=== PATIENT | female | born 1960 | race Caucasian/White ===

== ENCOUNTER 2022-04-24 02:33 | Inpatient (IN) | payer SELFPAY ==
[2022-04-24] MEDS ORDERED: ONDANSETRON 4 MG/2 ML VIAL ONE ×3 (03:35→16:05)
[2022-04-24] MEDS ORDERED: MORPHINE 4 MG/ML SYR ONE ×4 (03:35→13:10)
--- NOTE | 2022-04-24 03:51 | ER ---
Nurse's Notes [facility] Name: Nas Welsh Age: 61 yrs Sex: Female : 1960 Arrival Date: 04/24/2022 Time: 02:43 Bed 13 Private MD: Diagnosis: Fall on same level, unspecified;Displaced fracture of base of neck of left femur;Elevated white blood cell count Presentation: 04/24 03:11 Chief complaint: Patient states: "I was walking to the kitchen around 1030 and tripped vc1 over my dog. I couldn't stand up all I could do was scream. My put me in bed but around 0230 my hip still hurt so bad. EMS states: When we arrived she was complaining of left hip pain, no LOC, no obvious deformity, pain to touch. Coronavirus screen: Vaccine status: Patient reports receiving the 2nd dose of the covid vaccine. [employer]. Ebola Screen: No symptoms or risks identified at this time. Initial Sepsis Screen: Does the patient meet any 2 criteria? No. Patient's initial sepsis screen is negative. Does the patient have a suspected source of infection? No. Patient's initial sepsis screen is negative. Risk Assessment: Do you want to hurt yourself or someone else? Patient reports no desire to harm self or others. Onset of symptoms was April 23, 2022 at 22:30. 03:11 Method Of Arrival: EMS: [facility] vc1 03:11 Acuity: GLENDA 3 vc1 03:11 Care prior to arrival: None. Mechanism of Injury: Fall. Trauma event details: Injury vc1 occurred in the [facility]. Triage Assessment: 03:14 General: Appears in no apparent distress. uncomfortable, Behavior is calm, cooperative, vc1 appropriate for age. Pain: Complains of pain in left hip Pain does not radiate. Pain currently is 10 out of 10 on a pain scale. EENT: No deficits noted. Neuro: Level of Consciousness is awake, alert, obeys commands, Oriented to person, place, time, situation, Appropriate for age. Cardiovascular: Capillary refill < 3 seconds Patient's skin is warm and dry. Respiratory: Airway is patent Respiratory effort is even, unlabored, Respiratory pattern is regular, symmetrical. GI: No deficits noted. : No deficits noted. Derm: No deficits noted. Musculoskeletal: Tenderness present in left hip. Musculoskeletal: Reports weakness in left hip pain in left hip. Trauma Activation: Not Applicable Physician: ED Physician; Name: ; Notified At: ; Arrived At: Physician: General Surgeon; Name: ; Notified At: ; Arrived At: Physician: Radiology; Name: ; Notified At: ; Arrived At: Physician: Respiratory; Name: ; Notified At: ; Arrived At: Physician: Lab; Name: ; Notified At: ; Arrived At: Historical: - Allergies: 03:14 PENICILLINS; vc1 - Home Meds: 03:14 lisinopril 20 mg Oral tab 1 tab once daily [Active]; vc1 - PMHx: 03:14 borderline diabetic; Hypertension; vc1 - PSHx: 03:14 None; vc1 - Immunization history:: Adult Immunizations up to date, Client reports receiving the 2nd dose of the Covid vaccine. - Social history:: Smoking status: Patient denies any tobacco usage or history of. Patient/guardian denies using alcohol. - Immunization history: Last tetanus immunization: unknown. - Family history:: not pertinent. Screenin:17 Abuse screen: Denies threats or abuse. Nutritional screening: No deficits noted. vc1 Tuberculosis screening: No symptoms or risk factors identified. Fall Risk Fall in past 12 months (25 points). No secondary diagnosis (0 pts). No IV (0 pts). Ambulatory Aid- None/Bed Rest/Nurse Assist (0 pts). Gait- Normal/Bed Rest/Wheelchair (0 pts) Mental Status- Oriented to own ability (0 pts). Total Hale Fall Scale indicates Low Risk Score (25-44 pts). Fall prevention measures have been instituted. Side Rails Up X 2 Family Present and informed to notify staff if they need to leave bedside. Primary Survey: 02:50 NO uncontrolled hemorrhage observed. Breathing/Chest: Spontaneous respiratory effort, vc1 equal unlabored respirations, breath sounds clear bilaterally, regular pattern, symmetrical chest rise and fall. Circulation: No external hemorrhage present. Regular and strong central pulse, skin warm/dry/normal color. Disability Client is alert. Exposure/Environment: There is no evidence of uncontrolled external bleeding. A warming method has been applied: A warm blanket has been provided to the patient. 04:33 Reassessment Breathing: Spontaneous respiratory effort, equal unlabored respirations, vc1 breath sounds clear bilaterally, regular pattern with symmetrical chest rise and fall. Assessment: 03:45 Reassessment: No changes from previously documented assessment. See triage assessment. vc1 07:30 General: Appears in no apparent distress. Behavior is cooperative. Pain: Complains of ww pain in pelvis and left hip. Neuro: [place] Agitation-Sedation Scale (RASS): 0 - Alert and Calm Level of Consciousness is awake, alert, obeys commands, Oriented to person, place, time, situation, Speech is normal. Cardiovascular: Capillary refill < 3 seconds Patient's skin is warm and dry. Pulses are palpable in left posterior tibial artery and left dorsalis pedis artery. Respiratory: Airway is patent Respiratory effort is even, unlabored, Respiratory pattern is regular, symmetrical. GI: No signs and/or symptoms were reported involving the gastrointestinal system. : No signs and/or symptoms were reported regarding the genitourinary system. Slaughter in place Urine is clear. Derm: Skin is intact, is healthy with good turgor. Vital Signs: 03:11 BP 151 / 79; Pulse 70; Resp 17; Temp 97.4; Pulse Ox 100% on R/A; Weight 61.23 kg; vc1 Height 4 ft. 11 in. (149.86 cm); Pain 10/10; 04:34 BP 146 / 71; Pulse 66; Resp 15; Pulse Ox 95% on R/A; vc1 03:11 Body Mass Index 27.27 (61.23 kg, 149.86 cm) vc1 [place] Coma Score: 03:18 Eye Response: spontaneous(4). Verbal Response: oriented(5). Motor Response: obeys vc1 commands(6). Total: 15. Trauma Score (Adult): 03:18 Eye Response: spontaneous(1); Verbal Response: oriented(1); Motor Response: obeys vc1 commands(2); Systolic BP: > 89 mm Hg(4); Respiratory Rate: 10 to 29 per min(4); Toshia Score: 15; Trauma Score: 12 ED Course: 02:43 Patient arrived in ED. wm 02:59 Fercho Lu MD is Attending Physician. pernell 03:11 Yulisa Osborne RN is Primary Nurse. vc1 03:14 Triage completed. vc1 03:16 Arm band placed on right wrist. vc1 03:46 Hutton, Mohammad, MD is Hospitalizing Provider. pernell 04:34 Patient has correct armband on for positive identification. Bed in low position. Call vc1 light in reach. Client placed on continuous cardiac and pulse oximetry monitoring. NIBP monitoring applied. 04:34 Patient maintains SpO2 saturation greater than 95% on room air. vc1 04:34 Thermoregulation: warm blanket given to patient. vc1 04:39 Slaughter cath inserted, using sterile technique, 16 Fr., by ak, balloon inflated, to wm gravity drainage, clamped. 05:03 XRAY Chest (1 view) In Process Unspecified. EDMS 05:03 Pelvis XRAY In Process Unspecified. EDMS 05:03 Hip Left 2 View XRAY In Process Unspecified. EDMS 12:21 No provider procedures requiring assistance completed. ww 13:40 Patient admitted, IV remains in place. ww Administered Medications: 03:40 Drug: Zofran (Ondansetron) 4 mg Route: IVP; Site: right antecubital; vc1 03:41 Drug: morphine 4 mg Route: IVP; Site: right antecubital; vc1 Medication: 13:40 VIS not applicable for this client. ww Output: 13:40 Urine: 550ml (Slaughter); Total: 550ml. ww Outcome: 03:50 Decision to Hospitalize by Provider. [facility] 04:34 No Medsur beds availablePatient's length of stay extended due to vc1 13:39 Admitted to Med/surg accompanied by nurse, via stretcher, Report called to jorge. ww Attempted report at 1311 and Jorge will call back. I called at 1331 and Jorge will back. Jorge called at 1337 13:39 Condition: stable 14:29 Patient left the ED. ww Signatures: Dispatcher [employer] Fercho Alvarado MD MD cha Marsh, Wendy wm Wood, Whitney RN RN Yulisa Hill RN RN vc1 Corrections: (The following items were deleted from the chart) 03:15 03:14 Home Meds: lisinopril 20 mg Oral tab 1 tab twice a day; vc1 vc1
--- NOTE | 2022-04-24 03:51 | EDPHYS ---
Physician Documentation [facility] Name: Nas Welsh Age: 61 yrs Sex: Female : 1960 Arrival Date: 04/24/2022 Time: 02:43 Bed 13 Private MD: ED Physician Fercho Lu HPI: 04/24 03:42 This 61 yrs old Female presents to ER via EMS with complaints of Fall Injury. pernell 03:42 Details of fall: The patient fell from an upright position, while walking. Onset: The pernell symptoms/episode began/occurred just prior to arrival. Associated injuries: The patient sustained left hip, decreased range of motion, deformity, obvious fracture. Severity of symptoms: At their worst the symptoms were mild, moderate, in the emergency department the symptoms have improved, moderately, are actually worse, markedly. Historical: - Allergies: 03:14 PENICILLINS; vc1 - Home Meds: 03:14 lisinopril 20 mg Oral tab 1 tab once daily [Active]; vc1 - PMHx: 03:14 borderline diabetic; Hypertension; vc1 - PSHx: 03:14 None; vc1 - Immunization history:: Adult Immunizations up to date, Client reports receiving the 2nd dose of the Covid vaccine. - Social history:: Smoking status: Patient denies any tobacco usage or history of. Patient/guardian denies using alcohol. - Immunization history: Last tetanus immunization: unknown. - Family history:: not pertinent. ROS: 03:42 Constitutional: Negative for fever, chills, and weight loss, Eyes: Negative for injury, pernell pain, redness, and discharge, ENT: Negative for injury, pain, and discharge, Neck: Negative for injury, pain, and swelling, Cardiovascular: Negative for chest pain, palpitations, and edema, Respiratory: Negative for shortness of breath, cough, wheezing, and pleuritic chest pain, Abdomen/GI: Negative for abdominal pain, nausea, vomiting, diarrhea, and constipation, Back: Negative for injury and pain, : Negative for injury, bleeding, discharge, and swelling, Skin: Negative for injury, rash, and discoloration, Neuro: Negative for headache, weakness, numbness, tingling, and seizure, Psych: Negative for depression, anxiety, suicide ideation, homicidal ideation, and hallucinations, Allergy/Immunology: Negative for hives, rash, and allergies, Endocrine: Negative for neck swelling, polydipsia, polyuria, polyphagia, and marked weight changes, Hematologic/Lymphatic: Negative for swollen nodes, abnormal bleeding, and unusual bruising. 03:42 MS/extremity: Positive for injury or acute deformity, decreased range of motion, pain, swelling, tenderness, of the left hip. Exam: 03:42 Constitutional: This is a well developed, well nourished patient who is awake, alert, pernell and in no acute distress. Head/Face: Normocephalic, atraumatic. Eyes: Pupils equal round and reactive to light, extra-ocular motions intact. Lids and lashes normal. Conjunctiva and sclera are non-icteric and not injected. Cornea within normal limits. Periorbital areas with no swelling, redness, or edema. ENT: Nares patent. No nasal discharge, no septal abnormalities noted. Tympanic membranes are normal and external auditory canals are clear. Oropharynx with no redness, swelling, or masses, exudates, or evidence of obstruction, uvula midline. Mucous membranes moist. Neck: Trachea midline, no thyromegaly or masses palpated, and no cervical lymphadenopathy. Supple, full range of motion without nuchal rigidity, or vertebral point tenderness. No Meningismus. Chest/axilla: Normal chest wall appearance and motion. Nontender with no deformity. No lesions are appreciated. Cardiovascular: Regular rate and rhythm with a normal S1 and S2. No gallops, murmurs, or rubs. Normal PMI, no JVD. No pulse deficits. Respiratory: Lungs have equal breath sounds bilaterally, clear to auscultation and percussion. No rales, rhonchi or wheezes noted. No increased work of breathing, no retractions or nasal flaring. Abdomen/GI: Soft, non-tender, with normal bowel sounds. No distension or tympany. No guarding or rebound. No evidence of tenderness throughout. Back: No spinal tenderness. No costovertebral tenderness. Full range of motion. Female : Normal external genitalia. Skin: Warm, dry with normal turgor. Normal color with no rashes, no lesions, and no evidence of cellulitis. Neuro: Awake and alert, GCS 15, oriented to person, place, time, and situation. Cranial nerves II-XII grossly intact. Motor strength 5/5 in all extremities. Sensory grossly intact. Cerebellar exam normal. Normal gait. Psych: Awake, alert, with orientation to person, place and time. Behavior, mood, and affect are within normal limits. 03:42 Musculoskeletal/extremity: ROM: intact in all extremities, Circulation is intact in all extremities. Sensation intact. Compartment Syndrome exam of affected extremity: is normal. Weight bearing: DVT Exam: No signs of deep vein thrombosis. negative Homans' sign noted on exam, no appreciated bluish discoloration, no erythema, no increased warmth, pain, swelling, tenderness. 04:16 ECG was reviewed by the Attending Physician. [facility] Vital Signs: 03:11 BP 151 / 79; Pulse 70; Resp 17; Temp 97.4; Pulse Ox 100% on R/A; Weight 61.23 kg; vc1 Height 4 ft. 11 in. (149.86 cm); Pain 10/10; 04:34 BP 146 / 71; Pulse 66; Resp 15; Pulse Ox 95% on R/A; vc1 03:11 Body Mass Index 27.27 (61.23 kg, 149.86 cm) vc1 [place] Coma Score: 03:18 Eye Response: spontaneous(4). Verbal Response: oriented(5). Motor Response: obeys vc1 commands(6). Total: 15. Trauma Score (Adult): 03:18 Eye Response: spontaneous(1); Verbal Response: oriented(1); Motor Response: obeys vc1 commands(2); Systolic BP: > 89 mm Hg(4); Respiratory Rate: 10 to 29 per min(4); Toshia Score: 15; Trauma Score: 12 MDM: 02:59 Patient medically screened. [facility] 03:45 Differential diagnosis: fracture, multiple trauma, sprain, strain. Data reviewed: vital [facility] signs, nurses notes, EMS record, lab test result(s), EKG, radiologic studies, plain films. Data interpreted: slumber room attendant: rate is 70 beats/min, rhythm is regular, Pulse oximetry: on room air is 100 %. Test interpretation: by ED physician or midlevel provider: ECG, plain radiologic studies. Counseling: I had a detailed discussion with the patient and/or guardian regarding: the historical points, exam findings, and any diagnostic results supporting the discharge/admit diagnosis, the presence of at least one elevated blood pressure reading (>120/80) during this emergency department visit, lab results, radiology results, the need for further work-up and treatment in the hospital. 04/24 03:42 Order name: Basic Metabolic Panel; Complete Time: 07:14 [facility] 04/24 03:42 Order name: CBC with Diff; Complete Time: 05:04 [facility] 04/24 03:42 Order name: LFT's; Complete Time: 07:14 [facility] 04/24 03:42 Order name: Magnesium; Complete Time: 07:14 [facility] 04/24 03:42 Order name: NT PRO-BNP; Complete Time: 07:14 [facility] 04/24 03:42 Order name: PT-INR; Complete Time: 05:04 [facility] 04/24 03:42 Order name: Troponin HS; Complete Time: 07:14 [facility] 04/24 03:42 Order name: XRAY Chest (1 view) [facility] 04/24 03:42 Order name: Pelvis XRAY [facility] 04/24 03:42 Order name: Hip Left 2 View XRAY [facility] 04/24 03:42 Order name: SARS-COV-2 RT PCR (Document "Date of Onset" if Symptomatic); Complete Time: [facility] 04/24 10:35 Order name: RAD EDMS 04/24 03:42 Order name: EKG; Complete Time: 03:43 [facility] 04/24 03:42 Order name: Cardiac monitoring; Complete Time: 04:36 [facility] 04/24 03:42 Order name: EKG - Nurse/Tech; Complete Time: 04:36 [facility] 04/24 03:42 Order name: IV Saline Lock; Complete Time: 03:50 [facility] 04/24 03:42 Order name: Labs collected and sent; Complete Time: 03:50 [facility] 04/24 03:42 Order name: O2 Per Protocol; Complete Time: 03:50 [facility] 04/24 03:42 Order name: O2 Sat Monitoring; Complete Time: 03:50 [facility] 04/24 03:42 Order name: Slaughter; Complete Time: 04:36 [facility] EC:16 Rate is 64 beats/min. Rhythm is regular. QRS [place] is Normal. NC interval is normal. QRS pernell interval is normal. QT interval is normal. No Q waves. T waves are Normal. No ST changes noted. Clinical impression: Normal ECG and No evidence of ischemia. Interpreted by me. Reviewed by me. Administered Medications: 03:40 Drug: Zofran (Ondansetron) 4 mg Route: IVP; Site: right antecubital; vc1 03:41 Drug: morphine 4 mg Route: IVP; Site: right antecubital; vc1 Disposition Summary: 04/24/22 03:50 Hospitalization Ordered Hospitalization Status: Inpatient Admission pernell Provider: Jasbir Hutton cha Condition: Stable pernell Problem: new pernell Symptoms: are unchanged pernell Bed/Room Type: Standard pernell Location: Telemetry/MedSurg (Inpatient)(04/24/22 12:53) bd Room Assignment: 210(04/24/22 12:53) bd Diagnosis - Fall on same level, unspecified pernell - Displaced fracture of base of neck of left femur pernell - Elevated white blood cell count pernell Forms: - Medication Reconciliation Form pernell - SBAR form pernell Signatures: Dispatcher [employer] EDMS Ioana Gannon Corey, MD MD cha Garcia, Cindy, RN RN cg Wood, Whitney, RN RN ww Calcote, Vanessa, RN RN vc1 Pati Gonzalez PA PA sb3 Corrections: (The following items were deleted from the chart) 03:15 03:14 Home Meds: lisinopril 20 mg Oral tab 1 tab twice a day; vc1 vc1 05:23 03:50 Displaced intertrochanteric fracture of left femur, initial encounter for closed pernell fracture pernell 05:29 03:50 Telemetry/MedSurg (Inpatient) pernell cg 05:29 03:50 pernell cg 12:53 05:29 [facility] ER HOLD cg bd 12:53 05:29 ERHOLD- cg bd
[2022-04-24 04:08] LABS: Absolute Lymphocytes (CBC) 0.8 K/uL (0.7-4.9); Hematocrit 39.6 % (36.0-45.0); Lymphocytes % 6.1 % (15.3-44.8); MCV 83.2 fL (80-100); MPV 8.7 fL (7.6-11.3); RBC Red Blood Cell Count 4.76 M/uL (3.86-4.86)
[2022-04-24 04:10] LABS: Protime INR 0.97
--- NOTE | 2022-04-24 05:16 | P.HP ---
Certification for Inpatient Patient admitted to: Inpatient With expected LOS: <2 Midnights Patient will require the following post-hospital care: None Practitioner: I am a practitioner with admitting privileges, knowledge of patient current condition, hospital course, and medical plan of care. Services: Services provided to patient in accordance with Admission requirements found in Title 42 Section 412.3 of the Code of Federal Regulations <Pati Gonzalez - Last Filed: 04/24/22 05:17> Patient History Date of Service: 04/24/22 Reason for admission: Femur Fracture History of Present Illness: Patient is a 61 y/o F with PMH of HTN who presented to the ED with L hip pain s/p fall at home. Patient reports she was walking in her kitchen when she tripped over her dog and fell onto her L hip. She could not stand and her pain was unbearable and called EMS. L leg shortened and rotated upon arrival to ED. WBC elevated at 13. Chemistry pending. Xray showed L displaced intertrochanteric femur fracture. Official read pending. Patient given morphine in ED with improvement in pain. Patient denies cardiac history or use of anticoagulants. Will admit patient for further evaluation and treatment. Home medications list reviewed: Yes - Past Medical/Surgical History Diabetic: No -: HTN -: PREDIABETIC -: XAVIER -: RIGHT WRIST SX -: TONSILLECTOMY Psychosocial/ Personal History: Patient lives at home with her fiance. - Family History Brother -: Hypertension Sister -: Hypertension - Social History Smoking Status: Never smoker Alcohol use: No CD- Drugs: No Caffeine use: No Place of Residence: Home <CarlosPati - Last Filed: 04/24/22 05:17> Date of Service: 04/24/22 <Jasbir Hutton - Last Filed: 04/26/22 07:39> Allergies Penicillins Allergy (Verified 01/29/16 16:59) Hives/Rash "UNKNOWN" STEROID Allergy (Uncoded 04/24/22 15:57) TONGUE SWELLING Home Medications: lisinopriL [Prinivil*] 20 mg PO BID 01/29/16 Review of Systems Musculoskeletal: Other (L hip pain) <Pati Gonzalez - Last Filed: 04/24/22 05:17> Physical Examination - Physical Exam General: Alert, In no apparent distress HEENT: Atraumatic, PERRLA, EOMI, Sclerae nonicteric Neck: Supple, 2+ carotid pulse no bruit, No LAD, Without JVD or thyroid abnormality Respiratory: Clear to auscultation bilaterally, Normal air movement Cardiovascular: Regular rate/rhythm, Normal S1 S2 Gastrointestinal: Normal bowel sounds, No tenderness Musculoskeletal: Tenderness, Other (+deformity L leg) Integumentary: No rashes Neurological: Normal speech, Normal tone, Sensation intact, Normal affect - Studies Laboratory Data (last 24 hrs) 04/24/22 03:53: PT 10.7, INR 0.97 04/24/22 03:53: WBC 13.0 H, Hgb 13.4, Hct 39.6, Plt Count 153 <Pati Gonzalez - Last Filed: 04/24/22 05:17> Assessment and Plan - Problems (Diagnosis) (1) Femur fracture, left Current Visit: Yes Status: Acute Qualifiers: Encounter type: initial encounter Femur location: intertrochanteric Fracture type: closed Fracture alignment: displaced Qualified Code(s): S72.142A - Displaced intertrochanteric fracture of left femur, initial encounter for closed fracture (2) Leukocytosis Current Visit: Yes Status: Acute Qualifiers: Leukocytosis type: unspecified Qualified Code(s): D72.829 - Elevated white blood cell count, unspecified (3) Hypertension Current Visit: Yes Status: Chronic Qualifiers: Hypertension type: primary hypertension Qualified Code(s): I10 - Essential (primary) hypertension - Plan -NPO. Ortho consulted -Chemistry pending. Replete electrolytes per protocol -Patient is prediabetic. Monitor glucose -Morphine PRN pain -Hydralazine PRN BP spikes -Reconcile and continue home medications -SCDs for VTE ppx (patient is not on blood thinners) Discharge Plan: Home Plan to discharge in: 48 Hours - Advance Directives Does patient have a Living Will: No Does patient have a Durable POA for Healthcare: No - Code Status/Comfort Care Code Status Assessed: Yes (Full) Critical Care: No Time Spent Managing Pts Care (In Minutes): 50 <Pati Gonzalez - Last Filed: 04/24/22 05:17> Date of Service: 04/24/22 Subjective: HPI as mentioned above Physical Examination: Vitals: Afebrile vital signs are stable Physical exam: Cardiovascular: Within normal limits. Lungs: Within normal limits Abdomen: Within normal limits Neuro: Awake, alert, oriented to person place and time Assessment: 1. Left femoral neck fracture Plan: 1. Continue with current plan of care as mentioned above <Jasbir Hutton - Last Filed: 04/26/22 07:39>
[2022-04-24 06:31] LABS: ALT/SGPT 19 U/L (12-78); AST/SGOT 10 U/L (15-37); Albumin 3.3 g/dL (3.4-5.0); Alkaline Phosphatase 94 U/L (45-117); BUN Blood Urea Nitrogen 22 mg/dL (7-18); Bicarbonate 24 mmol/L (21-32); Bilirubin Total 0.3 mg/dL (0.2-1.0); Glomerular Filtration Rate 87 ml/min (=/>90); Glucose Level 146 mg/dL (74-106); Magnesium 1.9 mg/dL (1.8-2.4); NT PRO-BNP 47 pg/mL (<125); Protein, Total 6.5 g/dL (6.4-8.2); Sodium Level 138 mmol/L (136-145); Troponin High Sensitivity 5.1 pg/mL (<58.9)
[2022-04-24 06:33] LABS: Bilirubin Direct < 0.1 mg/dL (0-0.2)
[2022-04-24] MEDS ORDERED: HYDRALAZINE HCL 20 MG/ML VIAL IV PRN (08:00)
[2022-04-24] MEDS ORDERED: ACETAMINOPHEN 500 MG TAB PO PRN (08:00)
[2022-04-24] MEDS: NA CHLORIDE 0.9% 1,000 ML IV SCH ×3 (08:00→19:08)
[2022-04-24] MEDS ORDERED: ONDANSETRON 4 MG/2 ML VIAL IV PRN (08:00)
[2022-04-24] MEDS ORDERED: NA CHLORIDE 0.9% 1,000 ML ONE ×2 (08:36→17:41)
[2022-04-24] MEDS: MORPHINE 4 MG/ML SYR IV PRN ×2 (08:37→13:07)
[2022-04-24] MEDS ORDERED: TRANEXAMIC ACID 1,000 MG/10 ML VIAL IV ONE ×2 (08:49→17:00)
--- NOTE | 2022-04-24 10:34 | RAD REPORT ---
EXAM DESCRIPTION: XR Left Hip With Pelvis When Performed, 1 View CLINICAL HISTORY: The patient is 61 years old and is Female; PAIN TECHNIQUE: Single frontal view of the left hip with pelvis when performed. COMPARISON: No relevant prior studies available. FINDINGS: Bones/joints: Distracted left femoral neck fracture. No dislocation. Soft tissues: Unremarkable. IMPRESSION: Distracted left femoral neck fracture. Electronically signed by: Jamilah Francisco MD 04/24/2022 5:45 AM CDT Due to temporary technical issues with the PACS/Fluency reporting system, reports are being signed by the in house radiologists without review as a courtesy to insure prompt reporting. The interpreting radiologist is fully responsible for the content of the report.
--- NOTE | 2022-04-24 11:06 | EKG ---
Test Date: 2022-04-24 Test Time: 04:09:04 Industrial Ecology Technician: RADHA MEASUREMENT RESULTS: Intervals: Rate: 64 CA: 142 QRSD: 78 QT: 418 QTc: 431 [place]: P: 51 CA: 142 QRS: 40 T: 27 INTERPRETIVE STATEMENTS: Normal sinus rhythm Normal ECG No previous ECG available for comparison Electronically Signed On 04-24-22 11:04:48 CDT by Kin Felix
[2022-04-24 12:08] VITALS: BMI 27.2
--- NOTE | 2022-04-24 12:42 | RAD REPORT ---
EXAM DESCRIPTION: XR Pelvis, 1 or 2 Views CLINICAL HISTORY: The patient is 61 years old and is Female; left hip pain TECHNIQUE: Single frontal view of the pelvis. COMPARISON: No relevant prior studies available. FINDINGS: Bones/joints: Distracted left femoral neck fracture. No dislocation. Soft tissues: Unremarkable. IMPRESSION: Distracted left femoral neck fracture. Electronically signed by: Jamilah Francisco MD 04/24/2022 5:44 AM CDT Due to temporary technical issues with the PACS/Fluency reporting system, reports are being signed by the in house radiologists without review as a courtesy to insure prompt reporting. The interpreting radiologist is fully responsible for the content of the report.
--- NOTE | 2022-04-24 13:01 | RAD REPORT ---
EXAM DESCRIPTION: XR Chest, 1 View CLINICAL HISTORY: The patient is 61 years old and is Female; COUGH TECHNIQUE: Single view of the chest. COMPARISON: No relevant prior studies available. FINDINGS: Lungs: Hazy infiltrate or subsegmental atelectasis in the retrocardiac left lower lobe. Pleural space: Unremarkable. No pneumothorax. Heart: Unremarkable. No cardiomegaly. Mediastinum: Unremarkable. Bones/joints: No acute fracture visualized. Upper abdomen: No free air in the visualized upper abdomen. IMPRESSION: Hazy infiltrate or subsegmental atelectasis in the retrocardiac left lower lobe. Electronically signed by: Jamilah Francisco MD 04/24/2022 5:43 AM CDT Due to temporary technical issues with the PACS/Fluency reporting system, reports are being signed by the in house radiologists without review as a courtesy to insure prompt reporting. The interpreting radiologist is fully responsible for the content of the report.
[2022-04-24] MEDS ORDERED: LIDOCAINE 1% MPF 5 ML VIAL ONE (16:04)
[2022-04-24] MEDS ORDERED: FENTANYL CITR 100 MCG/2 ML ONE (16:04)
[2022-04-24] MEDS ORDERED: MIDAZOLAM HCL 2 MG/2 ML INJ ONE (16:04)
[2022-04-24] MEDS ORDERED: propofoL 200 MG/20 ML VIAL IV ONE (16:04)
[2022-04-24] MEDS ORDERED: KETOROLAC 30 MG/ML INJ ONE (16:05)
[2022-04-24] MEDS ORDERED: ROCURONIUM 50 MG/5 ML VIAL IV ONE (16:05)
[2022-04-24] MEDS ORDERED: NEOSTIGMINE 1 MG/ML -10 ML VIAL ONE (16:05)
[2022-04-24] MEDS ORDERED: GLYCOPYRROLATE 0.2 MG/ML SYR ONE (16:05)
[2022-04-24] MEDS: CEFAZOLIN SODIUM 1 GM/VIAL ONE ×2 (16:12→17:12)
[2022-04-24] MEDS ORDERED: Phenylephrine HCl 10 MG/ML 1 ML VIAL ONE (17:08)
[2022-04-24] MEDS ORDERED: EPHEDRINE SULF 50 MG/ML VIAL ONE (17:13)
[2022-04-24] MEDS: HYDROMORPHONE HCL 1 MG/ML INJ ONE ×2 (18:44→18:56)
--- NOTE | 2022-04-24 18:55 | RAD REPORT ---
EXAM DESCRIPTION: RAD - Pelvis - 04/24/2022 6:48 pm CLINICAL HISTORY: Left hip surgery FINDINGS: Left hip arthroplasty has been performed. The prosthesis is in good position. No dislocation. No fracture
[2022-04-24] MEDS: NACHLORIDE 0.45% 1,000 ML IV SCH (20:19)
--- NOTE | 2022-04-25 01:30 | OP ---
Surgeon: Terrance Carlton MD [employer] Specialist: bilingual medical assistant, Raina. Preoperative Diagnosis: Left femoral neck fracture. Postoperative Diagnosis: Left femoral neck fracture. Procedure Performed: Left hip hemiarthroplasty. Complications: None. Disposition: To recovery room stable. Operative Report In Detail: The patient was taken to the operative suite, placed in the supine posit ion, and induced with anesthesia. Left hip was prepped and draped in the usual sterile fashion. The posterior approach to the hip was utilized. Hemostasis was verified. The fractured femoral neck wa s delivered. External rotators were tagged for later reattachment, and prior to delivery, a 43 head was then harvested and osteotomized 1 fingerbreadth above the lesser trochanter. Reaming [place] nique for 11 mm standard offset proximal porous-coated Echo stem was utilized. A +3, 28 mm ball was appropriate. Permanent implants were placed. A layered closure was performed including repair of ex ternal rotators through drill holes in bone. The patient tolerated the procedure well, is being reve rsed from anesthesia at the time of this dictation, and should be in the recovery room shortly. JOHN/GEMA Voice ID: [id number] Report ID: [id number]
[2022-04-25] MEDS: CEFAZOLIN 1 GM in NA CHLORIDE 0.9% 50 ML IVPB SCH ×2 (01:46→08:14)
[2022-04-25 06:05] LABS: Urine Appearance Clear (Clear); Urine Bilirubin Negative (Negative); Urine Blood Trace-intact (Negative); Urine Color Yellow (Yellow); Urine Glucose Negative (Negative); Urine Protein Negative (Negative); Urine Specific Gravity 1.025 (1.005-1.030); Urine Urobilinogen 0.2 mg/dL (0.2-1.0)
[2022-04-25] MEDS: HYDROCODONE/APAP 5/325 MG TAB PO PRN ×2 (06:05→15:13)
[2022-04-25] MEDS: NACHLORIDE 0.45% 1,000 ML IV SCH ×3 (06:06→20:21)
[2022-04-25 06:09] LABS: Urine Microscopic Reflex ORDER UMIC
[2022-04-25 06:16] LABS: Absolute Lymphocytes (CBC) 0.4 K/uL (0.7-4.9); Hematocrit 34.6 % (36.0-45.0); Lymphocytes % 5.6 % (15.3-44.8); MCV 84.2 fL (80-100); MPV 8.3 fL (7.6-11.3); RBC Red Blood Cell Count 4.11 M/uL (3.86-4.86)
[2022-04-25 06:19] LABS: Urine Bacteria <20 /HPF (<20); Urine RBC <5 /HPF (NONE SEEN)
[2022-04-25 06:28] LABS: Potassium 4.1 mmol/L (3.5-5.1)
[2022-04-25] MEDS: ENOXAPARIN 30 MG/0.3 ML SQ SCH ×2 (08:14→20:22)
[2022-04-25] MEDS: MORPHINE 2 MG/ML SYR IV PRN (20:22)
[2022-04-26] MEDS: HYDROCODONE/APAP 5/325 MG TAB PO PRN ×2 (04:34→20:24)
[2022-04-26] MEDS: NACHLORIDE 0.45% 1,000 ML IV SCH (06:17)
--- NOTE | 2022-04-26 07:42 | P.PN ---
Subjective Date of Service: 04/25/22 Subjective: No new changes, No C/O voiced, Improving Review of Systems 10-point ROS is otherwise unremarkable Physical Examination - Vital Signs Temperature: 98.8 F Blood Pressure: 126/59 Pulse: 78 Respirations: 18 Pulse Ox (%): 98 - Physical Exam General: Alert, In no apparent distress, Oriented x3 HEENT: Atraumatic, PERRLA, EOMI Neck: Supple, JVD not distended Respiratory: Clear to auscultation bilaterally, Normal air movement Cardiovascular: Regular rate/rhythm, Normal S1 S2 Gastrointestinal: Normal bowel sounds, Soft and benign, Non-distended, No tenderness Musculoskeletal: Tenderness Neurological: Sensation intact, Cranial nerves 3-12 intact, Abnormal strength - Studies Medications List Reviewed: Yes Assessment & Plan - Problems (Diagnosis) (1) Femur fracture, left Current Visit: Yes Status: Acute Qualifiers: Encounter type: initial encounter Femur location: intertrochanteric Fracture type: closed Fracture alignment: displaced Qualified Code(s): S72.142A - Displaced intertrochanteric fracture of left femur, initial encounter for closed fracture (2) Hypertension Current Visit: Yes Status: Chronic Qualifiers: Hypertension type: primary hypertension Qualified Code(s): I10 - Essential (primary) hypertension (3) DM2 (diabetes mellitus, type 2) Current Visit: Yes Status: Acute - Plan Plan: 1. Patient to proceed to the OR today. Patient low to moderate risk for cardiopulmonary complications. Benefits outweigh the risk so she will proceed to surgery 2. Pain control 3. DVT prophylaxis 4. Strict blood pressure control Discharge Plan: Home Plan to discharge in: Greater than 2 days - Advance Directives Does patient have a Living Will: No Does patient have a Durable POA for Healthcare: No - Code Status/Comfort Care Code Status Assessed: Yes Code Status: Full Code Critical Care: No Time Spent Managing PTS Care (In Minutes): 45
--- NOTE | 2022-04-26 07:43 | P.PN ---
Date of Service: 04/26/22 Subjective Subjective: Patient continues to show some improvement. Clinical symptoms are much better. Review of Systems 10-point ROS is otherwise unremarkable Physical Examination - Vital Signs Reviewed - Physical Exam General: Alert, In no apparent distress, Oriented x3 Respiratory: Clear to auscultation bilaterally, Normal air movement Cardiovascular: Regular rate/rhythm, Normal S1 S2 Gastrointestinal: Normal bowel sounds, Soft and benign, Non-distended, No tenderness Musculoskeletal: Tenderness Neurological: Sensation intact, Cranial nerves 3-12 intact, Abnormal strength Assessment & Plan - Problems (Diagnosis) (1) Femur fracture, left Current Visit: Yes Status: Acute Qualifiers: Encounter type: initial encounter Femur location: intertrochanteric Fracture type: closed Fracture alignment: displaced Qualified Code(s): S72.142A - Displaced intertrochanteric fracture of left femur, initial encounter for closed fracture (2) Hypertension Current Visit: Yes Status: Chronic Qualifiers: Hypertension type: primary hypertension Qualified Code(s): I10 - Essential (primary) hypertension (3) DM2 (diabetes mellitus, type 2) Current Visit: Yes Status: Acute - Plan Continue with plan of care as mentioned below: 1. Patient to proceed to the OR today. Patient low to moderate risk for cardiopulmonary complications. Benefits outweigh the risk so she will proceed to surgery 2. Pain control 3. DVT prophylaxis 4. Strict blood pressure control Discharge Plan: Home Plan to discharge in: Greater than 2 days - Advance Directives Does patient have a Living Will: No Does patient have a Durable POA for Healthcare: No - Code Status/Comfort Care Code Status Assessed: Yes Code Status: Full Code Critical Care: No Time Spent Managing PTS Care (In Minutes): 45
[2022-04-26] MEDS: ENOXAPARIN 30 MG/0.3 ML SQ SCH ×2 (08:45→20:24)
[2022-04-26] MEDS: MORPHINE 2 MG/ML SYR IV PRN (15:32)
--- NOTE | 2022-04-26 18:23 | P.PN ---
Subjective Date of Service: 04/26/22 Chief Complaint: Femur Fracture Subjective: No new changes (s/p hemiarthroplasty left hip has been up withPT some dizziness) Review of Systems 10-point ROS is otherwise unremarkable Physical Examination - Vital Signs Temperature: 97.8 F Blood Pressure: 125/58 Pulse: 81 Respirations: 14 Pulse Ox (%): 100 - Physical Exam Musculoskeletal: Other (dresings C/D/I) - Studies [id number] Medications List Reviewed: Yes Assessment And Plan - Current Problems (Diagnosis) (1) S/P hip hemiarthroplasty Current Visit: Yes Status: Acute Plan: follow up in office 2 weeks post op, she will need anticoagulation 28 days post op, wbat with walker. Discharge Plan: Transfer Plan to discharge in: 24 Hours
--- NOTE | 2022-04-26 21:56 | CON ---
Date of Consultation: 04/24/2022 Reason For Consultation: Cardiac clearance for hip surgery. History Of Present Illness: Ms. Welsh is a 61-year-old woman. Has a history of hypertension and pred iabetes. Otherwise, no cardiac symptoms. Came in with hip injury and hip fracture on the left side. Dr. Carlton was consulted, who asked to clear the patient. The patient has no cardiac symptoms. Denied any chest pain, shortness of breath, nausea, vomiting, diaphoresis, PND, orthopnea, pedal josh a, palpitation, or syncope. Past Medical History: As stated above. Allergies: SHE IS ALLERGIC TO PENICILLIN AND STEROIDS. Review of Systems: Negative. Social History: Negative. Family History: Negative. Medications: At home include lisinopril. Physical Examination: Vital Signs: Stable, afebrile. HEENT: Negative. Neck: Supple with no bruit. Chest: Clear to auscultation and percussion. Cardiac: Revealed a regular rhythm and rate. No murmurs, gallops, or rubs. Abdomen: Benign. Extremities: Revealed no clubbing, cyanosis, or edema. Diagnostic Data: All normal. Her EKG is normal. Impression And Plan: The patient with hypertension, prediabetes. No cardiac symptoms. No physical findings of coronary artery disease or congestive heart failure. Normal x-ray and normal EKG. I thi nk she is at low risk for perioperative mortality. We will be available for questions if the need ar ises. SEGUNDO/GEMA Voice ID: [id number] Report ID: [id number]
--- NOTE | 2022-04-26 22:02 | PN ---
Date of Progress Note: 04/25/2022 Ms. Welsh is a 61-year-old woman, who I cleared her for surgery, for hip surgery by Dr. Carlton. Has a history of hypertension and prediabetes. On 04/25/2022, she underwent left hip hemiarthroplasty. Postoperatively, she was noted to be in sinus rhythm, afebrile, no arrhythmias, no evidence of conge stive heart failure, hemodynamically stable. She can resume her lisinopril whenever it is okay with Dr. Freedman and Dr. Hutton. I will sign off her case for now. SEGUNDO/GEMA Voice ID: [id number] Report ID: [id number]
[2022-04-27] MEDS: HYDROCODONE/APAP 5/325 MG TAB PO PRN ×4 (03:05→22:28)
[2022-04-27 06:47] LABS: Hematocrit 26.7 % (36.0-45.0); Lymphocytes % 18.3 % (15.3-44.8); MPV 8.5 fL (7.6-11.3); RBC Red Blood Cell Count 3.22 M/uL (3.86-4.86)
[2022-04-27] MEDS: ENOXAPARIN 30 MG/0.3 ML SQ SCH ×2 (07:49→21:01)
[2022-04-27] MEDS: ONDANSETRON 4 MG/2 ML VIAL IV PRN (11:54)
--- NOTE | 2022-04-28 00:26 | P.PN ---
Date of Service: 04/27/22 Subjective Subjective: Sleeping quiet a bit still; lots of emotional stressors at home Review of Systems 10-point ROS is otherwise unremarkable Physical Examination - Vital Signs reviewed - Physical Exam General: Alert, In no apparent distress, Oriented x3 Respiratory: Clear to auscultation bilaterally, Normal air movement Cardiovascular: Regular rate/rhythm, Normal S1 S2 Gastrointestinal: Normal bowel sounds, Soft and benign, Non-distended, No tenderness Musculoskeletal: Tenderness Neurological: Sensation intact, Cranial nerves 3-12 intact, Abnormal strength Assessment & Plan - Problems (Diagnosis) (1) Femur fracture, left Current Visit: Yes Status: Acute Qualifiers: Encounter type: initial encounter Femur location: intertrochanteric Fracture type: closed Fracture alignment: displaced Qualified Code(s): S72.142A - Displaced intertrochanteric fracture of left femur, initial encounter for closed fracture (2) Hypertension Current Visit: Yes Status: Chronic Qualifiers: Hypertension type: primary hypertension Qualified Code(s): I10 - Essential (primary) hypertension (3) DM2 (diabetes mellitus, type 2) Current Visit: Yes Status: Acute - Plan Continue with POC as mentioned below: 1. Pt improved but still sleepy 2. Pain control 3. DVT prophylaxis 4. Strict blood pressure control Discharge Plan: Home Plan to discharge in: Greater than 2 days - Advance Directives Does patient have a Living Will: No Does patient have a Durable POA for Healthcare: No - Code Status/Comfort Care Code Status Assessed: Yes Code Status: Full Code Critical Care: No Time Spent Managing PTS Care (In Minutes): 45
[2022-04-28] MEDS: HYDROCODONE/APAP 5/325 MG TAB PO PRN ×4 (04:33→20:07)
[2022-04-28 06:00] LABS: Hematocrit 24.7 % (36.0-45.0); Lymphocytes % 20.4 % (15.3-44.8); MCV 82.8 fL (80-100); MPV 8.4 fL (7.6-11.3); RBC Red Blood Cell Count 2.99 M/uL (3.86-4.86)
[2022-04-28 06:17] LABS: Phosphorus 2.8 mg/dL (2.5-4.9); Potassium 4.3 mmol/L (3.5-5.1)
[2022-04-28] MEDS: ENOXAPARIN 30 MG/0.3 ML SQ SCH ×2 (09:16→20:07)
[2022-04-28] MEDS: ZOLPIDEM TARTRATE 5 MG TABLET PO PRN (22:57)
[2022-04-29] MEDS: HYDROCODONE/APAP 5/325 MG TAB PO PRN ×4 (06:20→19:33)
[2022-04-29] MEDS: ENOXAPARIN 30 MG/0.3 ML SQ SCH ×2 (07:38→19:33)
--- NOTE | 2022-04-29 15:35 | P.PN ---
Date of Service: 04/28/22 Subjective Subjective: Patient doing better. She states that she got rid of her emotional stress. She is with her daughter and she is in much better spirits. Continue to ambulate her. Review of Systems 10-point ROS is otherwise unremarkable Physical Examination - Vital Signs reviewed - Physical Exam General: Alert, In no apparent distress, Oriented x3 Respiratory: Clear to auscultation bilaterally, Normal air movement Cardiovascular: Regular rate/rhythm, Normal S1 S2 Gastrointestinal: Normal bowel sounds, Soft and benign, Non-distended, No tenderness Musculoskeletal: Tenderness Neurological: Sensation intact, Cranial nerves 3-12 intact, Abnormal strength Assessment & Plan - Problems (Diagnosis) (1) Femur fracture, left Current Visit: Yes Status: Acute Qualifiers: Encounter type: initial encounter Femur location: intertrochanteric Fracture type: closed Fracture alignment: displaced Qualified Code(s): S72.142A - Displaced intertrochanteric fracture of left femur, initial encounter for closed fracture (2) Hypertension Current Visit: Yes Status: Chronic Qualifiers: Hypertension type: primary hypertension Qualified Code(s): I10 - Essential (primary) hypertension (3) DM2 (diabetes mellitus, type 2) Current Visit: Yes Status: Acute - Plan Continue with POC as mentioned below: 1. Pt improved but still sleepy 2. Pain control 3. DVT prophylaxis 4. Strict blood pressure control 5. Strict blood pressure control 6. Try to arrange for indigent home health if available Discharge Plan: Home Plan to discharge in: Greater than 2 days - Advance Directives Does patient have a Living Will: No Does patient have a Durable POA for Healthcare: No - Code Status/Comfort Care Code Status Assessed: Yes Code Status: Full Code Critical Care: No Time Spent Managing PTS Care (In Minutes): 45
--- NOTE | 2022-04-29 15:47 | P.PN ---
Date of Service: 04/29/22 Subjective Subjective: Patient continues to improve. Clinical symptoms are much better. Patient is ambulating with physical therapy. She actually walked out of the room and into the hallway. I am hoping we can get indigent home health and if we can maybe we can discharge her home in the morning. Review of Systems 10-point ROS is otherwise unremarkable Physical Examination - Vital Signs reviewed - Physical Exam General: Alert, In no apparent distress, Oriented x3 Respiratory: Clear to auscultation bilaterally, Normal air movement Cardiovascular: Regular rate/rhythm, Normal S1 S2 Gastrointestinal: Normal bowel sounds, Soft and benign, Non-distended, No tenderness Musculoskeletal: Tenderness Neurological: Sensation intact, Cranial nerves 3-12 intact, Abnormal strength Assessment & Plan - Problems (Diagnosis) (1) Femur fracture, left Current Visit: Yes Status: Acute Qualifiers: Encounter type: initial encounter Femur location: intertrochanteric Fracture type: closed Fracture alignment: displaced Qualified Code(s): S72.142A - Displaced intertrochanteric fracture of left femur, initial encounter for closed fracture (2) Hypertension Current Visit: Yes Status: Chronic Qualifiers: Hypertension type: primary hypertension Qualified Code(s): I10 - Essential (primary) hypertension (3) DM2 (diabetes mellitus, type 2) Current Visit: Yes Status: Acute - Plan Continue with POC as mentioned below: 1. Pt improved; ambulating well with physical therapy at this point 2. Pain control 3. DVT prophylaxis 4. Strict blood pressure control 5. Strict blood pressure control 6. Try to arrange for indigent home health if available Discharge Plan: Home Plan to discharge in: Greater than 2 days - Advance Directives Does patient have a Living Will: No Does patient have a Durable POA for Healthcare: No - Code Status/Comfort Care Code Status Assessed: Yes Code Status: Full Code Critical Care: No Time Spent Managing PTS Care (In Minutes): 45
[2022-04-29] MEDS: ZOLPIDEM TARTRATE 5 MG TABLET PO PRN (20:26)
[2022-04-29] MEDS: ONDANSETRON 4 MG/2 ML VIAL IV PRN (21:17)
[2022-04-30] MEDS: HYDROCODONE/APAP 5/325 MG TAB PO PRN ×3 (07:41→20:29)
[2022-04-30] MEDS: ENOXAPARIN 30 MG/0.3 ML SQ SCH ×2 (07:41→20:29)
--- NOTE | 2022-04-30 13:20 | P.PN ---
Subjective Date of Service: 04/30/22 Chief Complaint: Femur Fracture Subjective: No new changes (Working with PT Complaining of nausea post ambulation today) Physical Examination - Vital Signs Temperature: 97.0 F Blood Pressure: 103/59 Pulse: 69 Respirations: 16 Pulse Ox (%): 96 - Studies Medications List Reviewed: Yes Assessment And Plan - Code Status/Comfort Care Code Status: Full Code Physician Review: Patient Assessed, Agree with Above Assessment and Plan Physician Review Additional Text: 04/30/22 13:18 - Physical Exam General: Alert, In no apparent distress, Oriented x3 Respiratory: Clear to auscultation bilaterally, Normal air movement Cardiovascular: Regular rate/rhythm, Normal S1 S2 Gastrointestinal: Normal bowel sounds, Soft and benign, Non-distended, No tenderness Musculoskeletal: Tenderness Neurological: Sensation intact, Cranial nerves 3-12 intact, Abnormal strength Assessment & Plan - Problems (Diagnosis) (1) Femur fracture, left Current Visit: Yes Status: Acute Qualifiers: Encounter type: initial encounter Femur location: intertrochanteric Fracture type: closed Fracture alignment: displaced Qualified Code(s): S72.142A - Displaced intertrochanteric fracture of left femur, initial encounter for closed fracture (2) Hypertension Current Visit: Yes Status: Chronic Qualifiers: Hypertension type: primary hypertension Qualified Code(s): I10 - Essential (primary) hypertension (3) DM2 (diabetes mellitus, type 2) Current Visit: Yes Status: Acute Patient admitted for femoral fracture/left, status post ORIF, unable to do rehab due to insurance issues - Plan We will add Pepcid twice daily for presumed GERD Continue pain regimen Continue ambulation Follow-up plan for discharge Since constipation, add laxative ambulating well with physical therapy at this point Unable to arrange for indigent home health Possible discharge in a.m. Discharge Plan: Home Plan to discharge in: in am
[2022-04-30] MEDS ORDERED: BISACODYL E.C. 5 MG TAB PO ONE (13:30)
[2022-04-30] MEDS: FAMOTIDINE 20 MG TAB PO SCH ×2 (13:40→20:29)
[2022-04-30] MEDS: ZOLPIDEM TARTRATE 5 MG TABLET PO PRN (20:29)
[2022-04-30] MEDS: DOCUSATE NA 100 MG CAP PO SCH (20:29)
[2022-05-01] MEDS: FAMOTIDINE 20 MG TAB PO SCH (09:04)
[2022-05-01] MEDS: ENOXAPARIN 30 MG/0.3 ML SQ SCH (09:04)
[2022-05-01] MEDS: DOCUSATE NA 100 MG CAP PO SCH (09:04)
[2022-05-01 10:37] VITALS: O2SAT 93
[2022-05-01] MEDS: HYDROCODONE/APAP 5/325 MG TAB PO PRN (11:18)
--- NOTE | 2022-05-01 12:59 | P.DS ---
Admission Date: 04/24/22 Discharge Date: 05/01/22 Disposition: ROUTINE DISCHARGE Discharge Condition: FAIR Reason for Admission: Femur Fracture Brief History of Present Illness: History of Present Illness: Patient is a 61 y/o F with PMH of HTN who presented to the ED with L hip pain s/p fall at home. Patient reports she was walking in her kitchen when she tripped over her dog and fell onto her L hip. She could not stand and her pain was unbearable and called EMS. L leg shortened and rotated upon arrival to ED. WBC elevated at 13. Chemistry pending. Xray showed L displaced intertrochanteric femur fracture. Official read pending. Patient given morphine in ED with improvement in pain. Patient denies cardiac history or use of anticoagulants. Will admit patient for further evaluation and treatment. Hospital Course: Hospital course Patient with history of hypertension admitted for left femoral fracture. Patient underwent ORIF which was uneventful. Post surgery patient has significant weakness and needed physical therapy but was denied by insurance. Patient has extensive hospital stay for PT. She is able to ambulate well now with minimal to no assist. Our wound and pain has been relatively controlled. Her blood pressure was borderline low and she was taken off her lisinopril. She will be discharged home today to continue follow-up with her PCP Vital Signs/Physical Exam: Temp Pulse Resp BP Pulse Ox 98.4 F 73 18 149/68 H 94 05/01/22 08:00 05/01/22 08:00 05/01/22 11:18 05/01/22 08:00 05/01/22 11:18 Laboratory Data at Discharge: WBC 4.9 K/uL (4.3-10.9) 04/28/22 05:40 Hgb 8.3 g/dL (12.0-15.0) L 04/28/22 05:40 Hct 24.7 % (36.0-45.0) L 04/28/22 05:40 Plt Count 126 K/uL (152-406) L 04/28/22 05:40 PT 10.7 SECONDS (9.5-12.5) 04/24/22 03:53 INR 0.97 04/24/22 03:53 Sodium 137 mmol/L (136-145) 04/28/22 05:40 Potassium 4.3 mmol/L (3.5-5.1) 04/28/22 05:40 BUN 13 mg/dL (7-18) 04/28/22 05:40 Creatinine 0.59 mg/dL (0.55-1.3) 04/28/22 05:40 Glucose 124 mg/dL (74-106) H 04/28/22 05:40 Phosphorus 2.8 mg/dL (2.5-4.9) 04/28/22 05:40 Magnesium 2.0 mg/dL (1.8-2.4) 04/28/22 05:40 Total Bilirubin 0.3 mg/dL (0.2-1.0) 04/24/22 03:53 AST 10 U/L (15-37) L 04/24/22 03:53 ALT 19 U/L (12-78) 04/24/22 03:53 Alkaline Phosphatase 94 U/L (45-117) 04/24/22 03:53 Home Medications: lisinopriL [Prinivil*] 20 mg PO BID 01/29/16 Famotidine [Pepcid*] 20 mg PO BID #60 tab 05/01/22 Hydrocodone 5/APAP 325 [[place] 5/325*] 1 tab PO Q4HP PRN #15 tab 05/01/22 Sennosides/Docusate Sodium [Senna Plus 8.6-50 mg Tablet] 1 each PO BID #30 tablet 05/01/22 New Medications: Hydrocodone 5/APAP 325 [[place] 5/325*] 1 tab PO Q4HP PRN #15 tab PRN Reason: Pain Scale 5-7 (Moderate) Famotidine [Pepcid*] 20 mg PO BID #60 tab Sennosides/Docusate Sodium [Senna Plus 8.6-50 mg Tablet] 1 each PO BID #30 tablet Followup: Unknown,U [Primary Care Provider] -
[2022-05-01 13:06] VITALS: BP 122/66; TEMP 97.9
== END 2022-05-01 15:23 | disposition home or self-care (01) | DRG 522 ==
LOC: ER 02:33 → ERHOLD 05:11 → 2ND 13:43
PROVIDERS: ADMIT Hospitalist; ATTEND Hospitalist
PROC: 0SRS01A Replacement of Left Hip Joint, Femoral Surface with Metal Synthetic Substitute, Uncemented, Open Approach (ICD-10-PCS; principal; 2022-04-24 17:45)
DX: S72.142A Displaced intertrochanteric fracture of left femur, initial encounter for closed fracture (principal); I10 Essential (primary) hypertension; D72.829 Elevated white blood cell count, unspecified; E11.9 Type 2 diabetes mellitus without complications; K21.9 Gastro-esophageal reflux disease without esophagitis; W01.0XXA Fall on same level from slipping, tripping and stumbling without subsequent striking against object, initial encounter; Y92.000 Kitchen of unspecified non-institutional (private) residence as the place of occurrence of the external cause; Z88.0 Allergy status to penicillin; Z20.822 Contact with and (suspected) exposure to COVID-19
CPT/HCPCS: 36415; 51702; 71045; 72170; 80048; 80076; 81003; 81015; 82947; 83735; 83880; 84100; 84484; 85025; 85610; 87086; 87088; 88305; 88311; 93005; 96374; 96375; 97110; 97116; 97161; 97530; 99285; J0690; J1170; J1650; J2250; J2270; J2370; J2405; J2704; J2710; J3010; J7030; U0003

== ENCOUNTER 2024-09-03 13:09 | Emergency (ER) | payer OTHER, SELFPAY ==
[2024-09-03] MEDS ORDERED: NA CHLORIDE 0.9% 500 ML ONE (13:27)
[2024-09-03] MEDS ORDERED: GLUCAGON 1 MG/VIAL ONE ×2 (13:27→15:14)
[2024-09-03] MEDS ORDERED: ONDANSETRON 4 MG/2 ML VIAL ONE (13:38)
[2024-09-03 13:50] LABS: Absolute Lymphocytes (CBC) 0.9 K/uL (0.7-4.9); Absolute Monocytes 0.6 K/uL (0.1-1.3); Basophils % 0.2 % (0-1.3); Eosinophils % 0.4 % (0-4.4); Hemoglobin 13.5 g/dL (12.0-15.0); Lymphocytes % 10.6 % (15.3-44.8); MCH 27.8 pg (27.0-35.0); MCHC 32.9 g/dL (32.0-36.0); MCV 84.5 fL (80-100); MPV 8.6 fL (7.6-11.3); Monocytes % 6.7 % (3.3-12.3); Neutrophils % 82.1 % (41.7-73.7); Platelets 154 thou/uL (152-406); RBC Red Blood Cell Count 4.86 M/uL (3.86-4.86); Red Cell Distribution Width 13.5 % (12.1-15.2)
[2024-09-03 14:02] LABS: Anion Gap 6.3 mEq/L (5.0-15.0); Potassium 3.3 mEq/L (3.5-5.1)
--- NOTE | 2024-09-03 14:53 | RAD REPORT ---
EXAMINATION: ONE VIEW CHEST XR CLINICAL INDICATION: Female, 64 years old.,food bolus TECHNIQUE: Frontal chest projection is submitted. Examination is limited by patient positioning and t echnique. COMPARISON: 04/24/2022. FINDINGS: The lungs are well inflated and clear. No pneumothorax or sizable effusion. The heart is normal in s ize. Tortuosity of the thoracic aorta again seen. IMPRESSION: No acute intrathoracic abnormalities.
--- NOTE | 2024-09-03 16:27 | ER ---
Nurse's Notes [facility] Name: Nas Welsh Age: 64 yrs Sex: Female : 1960 Arrival Date: 09/03/2024 Time: 13:09 Bed 20 Private MD: Diagnosis: Food bolus impaction Presentation: 09/03 13:12 Chief complaint: EMS states: possible food bolus since 2200 last night. Pt reportedly kc6 was eating steak and is unable to hold anything down after dinner. Coronavirus screen: Client denies travel out of the [place] in the last 14 days. Ebola Screen: Patient denies exposure to infectious person. Patient denies travel to an Ebola-affected area in the 21 days before illness onset. Initial Sepsis Screen: Does the patient meet any 2 criteria? No. Patient's initial sepsis screen is negative. Does the patient have a suspected source of infection? No. Patient's initial sepsis screen is negative. Risk Assessment: Do you want to hurt yourself or someone else? Patient reports no desire to harm self or others. Onset of symptoms was September 02, 2024. 13:12 Method Of Arrival: Ambulatory [facility] 13:12 Acuity: GLENDA 3 kc6 Historical: - Allergies: 13:13 PENICILLINS; kc6 13:13 unknown steroid; kc6 18:39 HYDRALAZINE; kc6 - PMHx: 13:13 borderline diabetic; Hypertension; kc6 - Immunization history:: Adult Immunizations up to date. - Infectious Disease History:: Denies. - Social history:: Smoking status: unknown. Screenin:02 [facility] ED Fall Risk Assessment (Adult) History of falling in the last 3 months, kc6 including since admission No falls in past 3 months (0 pts) Confusion or Disorientation No (0 pts) Intoxicated or Sedated No (0 pts) Impaired Gait No (0 pts) Mobility Assist Device Used No (0 pt) Altered Elimination No (0 pt) Score/Fall Risk Level 0 - 2 = Low Risk Oriented to surroundings. Abuse screen: Denies threats or abuse. Denies injuries from another. Nutritional screening: No deficits noted. Tuberculosis screening: No symptoms or risk factors identified. Assessment: 14:02 General: Appears in no apparent distress. uncomfortable, well groomed, well developed, kc6 Behavior is calm, cooperative, appropriate for age. Pain: Denies pain. Neuro: Level of Consciousness is awake, alert, obeys commands, Oriented to person, place, time, situation, Appropriate for age. Cardiovascular: Capillary refill < 3 seconds. Respiratory: Airway is patent Trachea midline Respiratory effort is even, unlabored, Respiratory pattern is regular, symmetrical. GI: Reports nausea, vomiting, Patient currently denies abdominal pain, diarrhea. : No signs and/or symptoms were reported regarding the genitourinary system. EENT: Throat with gag reflex present. Derm: No signs and/or symptoms reported regarding the dermatologic system. Skin is intact, is healthy with good turgor, Skin is pink, warm \\T\\ dry. 14:16 Reassessment: Patient states feeling better. Patient states symptoms have improved. kc6 15:02 Reassessment: Patient appears in no apparent distress at this time. No changes from kc6 previously documented assessment. Patient and/or family updated on plan of care and expected duration. Pain level reassessed. Patient is alert, oriented x 3, equal unlabored respirations, skin warm/dry/pink. 16:02 Reassessment: Patient appears in no apparent distress at this time. No changes from kc6 previously documented assessment. Patient and/or family updated on plan of care and expected duration. Pain level reassessed. Patient is alert, oriented x 3, equal unlabored respirations, skin warm/dry/pink. 17:28 Reassessment: Patient appears in no apparent distress at this time. No changes from kc6 previously documented assessment. Patient and/or family updated on plan of care and expected duration. Pain level reassessed. Patient is alert, oriented x 3, equal unlabored respirations, skin warm/dry/pink. 17:50 Reassessment: pt used call light, states, "I can't breath or swallow, something is kc6 wrong." pt appears to be grabbing her neck, red rash noted to the chest and neck. SPO2 is 100%. Dr. Bartlett made aware. 18:50 Reassessment: Patient appears in no apparent distress at this time. No changes from kc6 previously documented assessment. Patient and/or family updated on plan of care and expected duration. Pain level reassessed. Patient is alert, oriented x 3, equal unlabored respirations, skin warm/dry/pink. 19:00 Reassessment: nurse to nurse report given to CHRISS Hernandes at [facility]. kc6 19:00 Reassessment: Yannick Sun (son) [phone]. kc6 19:37 General: Appears in no apparent distress. uncomfortable, Behavior is calm, cooperative. al5 Pain: Denies pain. Neuro: Level of Consciousness is awake, alert, obeys commands, Oriented to person, place, time, situation. Cardiovascular: Capillary refill < 3 seconds Patient's skin is warm and dry. Respiratory: Airway is patent Respiratory effort is even, unlabored, Respiratory pattern is regular, symmetrical. GI: No signs and/or symptoms were reported involving the gastrointestinal system. : No signs and/or symptoms were reported regarding the genitourinary system. EENT: No signs and/or symptoms were reported regarding the EENT system. Derm: Skin is intact, is healthy with good turgor, Skin is pink, warm \\T\\ dry. normal. 19:37 Musculoskeletal: No signs and/or symptoms reported regarding the musculoskeletal system.al5 Vital Signs: 13:19 BP 191 / 120; Pulse 83; Resp 16; Temp 98.6; Pulse Ox 100% on R/A; Weight 56.7 kg; ss Height 5 ft. 2 in. ; Pain 6/10; 14:03 BP 214 / 92; Pulse 82; Resp 18 S; Pulse Ox 99% on R/A; kc6 16:04 BP 187 / 89; Pulse 82; Resp 16 S; Pulse Ox 100% on R/A; kc6 17:28 BP 213 / 91; Pulse 72; Resp 18 S; Pulse Ox 100% on R/A; kc6 18:58 BP 160 / 96; Pulse 94; Resp 18 S; Pulse Ox 99% on R/A; kc6 19:00 BP 155 / 81; Pulse 93; Resp 18 S; Pulse Ox 100% on R/A; kc6 13:19 Body Mass Index 22.86 (56.70 kg, 157.48 cm) ss 13:19 Pain Scale: Adult ss ED Course: 13:12 Patient arrived in ED. kc6 13:12 Jamilah Bartlett MD is Attending Physician. sd2 13:13 Triage completed. kc6 13:13 Arm band placed on right wrist. kc6 13:25 Teri Patricia, RN is Primary Nurse. kc6 14:01 Patient has correct armband on for positive identification. Bed in low position. Call kc6 light in reach. Side rails up X 1. Pulse ox on. NIBP on. Door closed. Noise minimized. Lights dimmed. Warm blanket given. Pillow given. 14:01 Maintain EMS IV. Dressing intact. Good blood return noted. Site clean \\T\\ dry. Gauge \\T\\ brent 6 site: 20G RHAND. Flushed with 10 mL NS. Inserted saline lock: 20 gauge in right antecubital area, using aseptic technique. Blood collected. Flushed with 10 mL NS. Patient maintains SpO2 saturation greater than 95% on room air. 14:04 Diet: Patient given water. Tolerated well. kc6 14:13 XRAY Chest (1 view) In Process Unspecified. EDMS 16:22 spoke with Jw at the [facility] transfer center. 6 16:52 doc to doc. 6 17:30 acceptance received at [facility] for bed A[address] with [address] Molina Hubbard. 6 19:00 Report given to Netea Wick RN. kc6 20:04 No provider procedures requiring assistance completed. Patient transferred, IV remains al5 in place. 20:05 Provided Education on: need for transfer. al5 09/04 02:15 7 called [facility] for transfer talked to Yocasta. sp Administered Medications: 09/03 13:41 Drug: Glucagon IVP 1 mg IVP once Route: IVP; Site: right antecubital; kc6 14:16 Follow up: Response: No adverse reaction [facility] 13:41 Drug: NS 0.9% IV 500 ml IV at bolus once; to be given as a bolus over 30 minutes Route: kc6 IV; Rate: bolus; Site: right antecubital; 17:01 Follow up: Response: No adverse reaction; IV Status: Completed infusion; IV Intake: kc6 500ml 13:44 Drug: Ondansetron IVP 4 mg IVP once; over 2 minutes Route: IVP; Site: right antecubital;kc6 14:16 Follow up: Response: No adverse reaction; Nausea is decreased; Vomiting decreased kc6 15:16 Drug: Glucagon IVP 1 mg IVP once Route: IVP; Site: right antecubital; kc6 17:01 Follow up: Response: No adverse reaction kc6 17:27 Drug: hydrALAZINE IVP 10 mg IVP once Route: IVP; Site: right antecubital; kc6 18:38 Follow up: Response: Adverse reaction, Physician notified kc6 17:55 Drug: diphenhydrAMINE IVP 50 mg IVP once Route: IVP; Site: right antecubital; kc6 19:14 Follow up: Response: No adverse reaction kc6 18:38 Drug: Famotidine IVP 20 mg IVP once; dilute with 10 mL 0.9% NaCl; give over 2 minutes kc6 Route: IVP; Site: right antecubital; 19:13 Follow up: Response: No adverse reaction kc6 Medication: 20:04 VIS not applicable for this client. al5 Intake: 17:01 IV: 500ml; Total: 500ml. kc6 Outcome: 16:27 ER care complete, transfer ordered by . sd2 20:05 Transferred by ground EMS Note: [facility] al5 20:05 Condition: good 20:05 Instructed on the need for transfer, 20:06 Patient left the ED. al5 Signatures: Dispatcher [employer] EDMS Hannah Zambrano Shelby, RN RN Jamilah Bartlett MD MD sd2 Teri Patricia RN RN kc6 Kizzy Gardner Amanda, RN RN al5 Corrections: (The following items were deleted from the chart) 19:09 18:58 BP 160 / 96; kc6 kc6
--- NOTE | 2024-09-03 16:27 | EDPHYS ---
Physician Documentation [facility] Name: Nas Welsh Age: 64 yrs Sex: Female : 1960 Arrival Date: 09/03/2024 Time: 13:09 Bed 20 Private MD: ED Physician Jamilah Bartlett HPI: 09/03 15:11 This 64 yrs old Female presents to ER via Ambulatory with complaints of Foreign Body In sd2 Throat. 15:11 64 yo F presents with CC of food bolus sensation since last night after she choked sd2 while eating steak. Reports feeling of something stuck in her throat and that she has tried to eat and drink but vomits afterwards and is unable to swallow her own saliva. Denies fever, CP, SOB, diarrhea.. Historical: - Allergies: 13:13 PENICILLINS; kc6 13:13 unknown steroid; kc6 18:39 HYDRALAZINE; kc6 - PMHx: 13:13 borderline diabetic; Hypertension; kc6 - Immunization history:: Adult Immunizations up to date. - Infectious Disease History:: Denies. - Social history:: Smoking status: unknown. ROS: 15:11 Constitutional: Negative for fever, chills, and weight loss, Eyes: Negative for injury, sd2 pain, redness, and discharge, Cardiovascular: Negative for chest pain, palpitations, and edema, Respiratory: Negative for shortness of breath, cough, wheezing. Abdomen/GI: Negative for abdominal pain, diarrhea. Positive for nausea, vomiting MS/Extremity: Negative for injury and deformity, Skin: Negative for injury, rash, and discoloration, Exam: 15:11 Constitutional: This is a well developed, well nourished patient who is awake, alert, sd2 and in no acute distress. Head/Face: Normocephalic, atraumatic. Eyes: EOMI, normal conjunctiva bilaterally Chest/axilla: Normal chest wall appearance and motion. Nontender with no deformity. Cardiovascular: Regular rate and rhythm with a normal S1 and S2. No gallops, murmurs, or rubs. 2+ distal pulses. Respiratory: Lungs have equal breath sounds bilaterally, clear to auscultation and percussion. No rales, rhonchi or wheezes noted. No increased work of breathing, no retractions or nasal flaring. Abdomen/GI: Soft, non-tender, with normal bowel sounds. No guarding or rebound. No evidence of tenderness throughout. Skin: Warm, dry with normal turgor. Normal color with no rashes, no lesions, and no evidence of cellulitis. MS/ Extremity: Pulses equal, no cyanosis. Neurovascular intact. Full, normal range of motion. Psych: Awake, alert, with orientation to person, place and time. Behavior, mood, and affect are within normal limits. Vital Signs: 13:19 BP 191 / 120; Pulse 83; Resp 16; Temp 98.6; Pulse Ox 100% on R/A; Weight 56.7 kg; ss Height 5 ft. 2 in. ; Pain 6/10; 14:03 BP 214 / 92; Pulse 82; Resp 18 S; Pulse Ox 99% on R/A; kc6 16:04 BP 187 / 89; Pulse 82; Resp 16 S; Pulse Ox 100% on R/A; kc6 17:28 BP 213 / 91; Pulse 72; Resp 18 S; Pulse Ox 100% on R/A; kc6 18:58 BP 160 / 96; Pulse 94; Resp 18 S; Pulse Ox 99% on R/A; kc6 19:00 BP 155 / 81; Pulse 93; Resp 18 S; Pulse Ox 100% on R/A; kc6 13:19 Body Mass Index 22.86 (56.70 kg, 157.48 cm) ss 13:19 Pain Scale: Adult ss MDM: 13:36 Medical Screening Exam initiated sd2 15:11 Differential Diagnosis food bolus, stricture, tear, perforation, GE among others. Data sd2 reviewed: vital signs, nurses notes, lab test result(s), radiologic studies. I considered the following discharge prescriptions or medication management in the emergency department Medications were administered in the Emergency Department. See MAR. Care significantly affected by the following chronic conditions: Hypertension. Counseling: I had a detailed discussion with the patient and/or guardian regarding the historical points, exam findings, and any diagnostic results supporting the discharge/admit diagnosis, lab results, radiology results. ED course: Pt initially around 1415 with resolution of symptoms and resting comfortably at time of my repeat evaluation tolerating PO fluids. Continued monitoring did not show recurrence until 1515 now when the patient has started vomiting again and not feeling well. Will try a second a dose of Glucagon after discussing with patient as she would like to try to avoid transfer. . 16:15 ED course: Pt remains symptomatic. Unable to tolerate PO. Will initiate transfer sd2 process at this time. . 16:53 Management of patient was discussed with the following: Hospitalist: Dr. Hubbard, at [address]ist and Dr[address] Laws, GI, informed by Transfer Center GI will see the patient when they arrive. 17:55 ED course: Informed by RN patient having allergic reaction to hydralazine with hives. sd2 Pt reports difficulty breathing and swallowing but states that was present from the food bolus prior to receiving the medication. She was given IV Benadryl and Pepcid. States she is allergic to steroids. Will continue to monitor. . 09/03 13:18 Order name: CBC with Diff; Complete Time: 14:05 sd2 09/03 13:18 Order name: BMP; Complete Time: 14: sd2 09/03 13:37 Order name: XRAY Chest (1 view); Complete Time: 15:10 sd2 Administered Medications: 13:41 Drug: Glucagon IVP 1 mg IVP once Route: IVP; Site: right antecubital; kc6 14:16 Follow up: Response: No adverse reaction kc6 13:41 Drug: NS 0.9% IV 500 ml IV at bolus once; to be given as a bolus over 30 minutes Route: kc6 IV; Rate: bolus; Site: right antecubital; 17:01 Follow up: Response: No adverse reaction; IV Status: Completed infusion; IV Intake: kc6 500ml 13:44 Drug: Ondansetron IVP 4 mg IVP once; over 2 minutes Route: IVP; Site: right antecubital;kc6 14:16 Follow up: Response: No adverse reaction; Nausea is decreased; Vomiting decreased kc6 15:16 Drug: Glucagon IVP 1 mg IVP once Route: IVP; Site: right antecubital; kc6 17:01 Follow up: Response: No adverse reaction kc6 17:27 Drug: hydrALAZINE IVP 10 mg IVP once Route: IVP; Site: right antecubital; kc6 18:38 Follow up: Response: Adverse reaction, Physician notified kc6 17:55 Drug: diphenhydrAMINE IVP 50 mg IVP once Route: IVP; Site: right antecubital; kc6 19:14 Follow up: Response: No adverse reaction kc6 18:38 Drug: Famotidine IVP 20 mg IVP once; dilute with 10 mL 0.9% NaCl; give over 2 minutes kc6 Route: IVP; Site: right antecubital; 19:13 Follow up: Response: No adverse reaction kc6 Disposition Summary: 09/03/24 16:27 Transfer Ordered Notes: Transfer Location: [place] [id number] Reason: Higher level of care sd2 Condition: Stable sd2 Problem: new sd2 Symptoms: are unchanged sd2 Accepting Physician: Dr. Hubbard/Dr. Laws(09/03/24 20:06) al5 Diagnosis - Food bolus impaction sd2 Forms: - Medication Reconciliation Form sd2 - SBAR form sd2 Signatures: Dispatcher [employer] EDMS Jamilah Bartlett MD MD sd2 Teri Patricia RN RN kc6 Neeta Ceja RN RN al5 Corrections: (The following items were deleted from the chart) 13:18 13:18 CBC+H.LAB.BRZ ordered. EDMS EDMS 13:19 13:18 BASIC METABOLIC PANEL+C.LAB.BRZ ordered. EDMS EDMS 16:54 16:27 Accepting MD godoy sd2 20:06 16:54 Dr. Hubbard/Dr. Laws sd2 al5
[2024-09-03] MEDS ORDERED: HYDRALAZINE HCL 20 MG/ML VIAL ONE (17:04)
[2024-09-03] MEDS ORDERED: DIPHENHYDRAMINE 50 MG/ML VIAL ONE (17:50)
[2024-09-03] MEDS ORDERED: FAMOTIDINE 20 MG/2 ML VIAL IV ONE (18:36)
[2024-09-04 03:54] VITALS: TEMP 98.6
[2024-09-04 04:04] VITALS: BP 155/81; O2SAT 100
== END 2024-09-03 20:06 | disposition short-term general hospital (02) ==
LOC: ER 13:09
DX: T18.128A Food in esophagus causing other injury, initial encounter (principal)
CPT/HCPCS: 36415; 71045; 80048; 85025; 96361; 96374; 96375; 99285; J0360; J1200; J1610; J2405; J7040